=== PATIENT | female | born 1985 | race Two or more races ===

== ENCOUNTER 2018-08-06 22:24 | Emergency (ER) | payer BC ==
[~2018-08-06] VITALS: Ht 152.4 cm; Wt 42.2 kg
[2018-08-06 22:44] VITALS: BP 133/65
[2018-08-06] MEDS ORDERED: ALPRAZOLAM 0.5 MG TABLET PO ONE (23:00)
[2018-08-06] MEDS ORDERED: ALPRAZOLAM 0.5 MG TABLET ONE (23:07)
== END 2018-08-06 23:27 | disposition home or self-care (01) ==
LOC: ER 22:29
DX: F41.0 Panic disorder [episodic paroxysmal anxiety] (principal); F12.90 Cannabis use, unspecified, uncomplicated; F32.9 Major depressive disorder, single episode, unspecified; Z98.890 Other specified postprocedural states